=== PATIENT | female | born 1945 | race Caucasian/White ===

== ENCOUNTER 2017-04-28 11:44 | Emergency (ER) | payer MEDICARE ==
[~2017-04-28] VITALS: Ht 172.7 cm; Wt 70.0 kg
[2017-04-28] MEDS ORDERED: LEVOTHYROXIN150 MCG PO (12:05)
[2017-04-28] MEDS ORDERED: SERTRALINE HCL50 MG PO (12:06)
[2017-04-28] MEDS ORDERED: CYCLOBENZAPR10 MG PO (12:06)
[2017-04-28] MEDS ORDERED: ESTRACE2 M1 PO (12:06)
[2017-04-28] MEDS ORDERED: AMLODIPINE2.5 MG PO (12:07)
[2017-04-28] MEDS ORDERED: ATORVASTATIN CA10 MG PO (12:07)
[2017-04-28] MEDS ORDERED: NEXIUM 24HR20 M1 PO (12:08)
[2017-04-28] MEDS ORDERED: PERCOCET 5/325M1 TAB PO (12:53)
[2017-04-28 13:16] VITALS: BP 156/89
== END 2017-04-28 13:16 | disposition home or self-care (01) ==
LOC: ED 11:44
DX: M19.071 Primary osteoarthritis, right ankle and foot (principal); S92.511A Displaced fracture of proximal phalanx of right lesser toe(s), initial encounter for closed fracture; G89.29 Other chronic pain; M54.9 Dorsalgia, unspecified; E03.9 Hypothyroidism, unspecified; I10 Essential (primary) hypertension; X58.XXXA Exposure to other specified factors, initial encounter; Z91.81 History of falling